=== PATIENT | female | born 1965 | race African-American/Black ===

== ENCOUNTER 2022-06-03 11:45 | Emergency (ER) | payer OTHER ==
[~2022-06-03] VITALS: Ht 175.3 cm; Wt 82.7 kg
[~2022-06-03 11:45] MED LIST: NOCURR
[2022-06-03 11:47] VITALS: BP 131/97
[2022-06-03] MEDS ORDERED: LISI-892 PO (11:55)
[2022-06-03] MEDS ORDERED: PERTUSS(ACELL),DIPH,TET VAC/PF 0.5 ML SYRINGE IM. ONE (12:15)
[2022-06-03] MEDS ORDERED: BACITRACIN 28 GM OINTMENT TP ONE (12:15)
[2022-06-03] MEDS ORDERED: AMOX TR/POT CLAV 875 MG/125 MG TABLET PO ONE (12:15)
[2022-06-03] MEDS ORDERED: AMOX1TAB16 PO (12:16)
[2022-06-03] MEDS ORDERED: ACET-3385 PO (13:24)
[2022-06-03] MEDS ORDERED: ACETAMINOPHEN 500 MG TABLET PO ONE (13:30)
== END 2022-06-03 13:43 | disposition home or self-care (01) ==
LOC: EMS 11:45
DX: S61.552A Open bite of left wrist, initial encounter (principal); S21.052A Open bite of left breast, initial encounter; F10.20 Alcohol dependence, uncomplicated; F12.90 Cannabis use, unspecified, uncomplicated; F17.210 Nicotine dependence, cigarettes, uncomplicated; I10 Essential (primary) hypertension; Y04.1XXA Assault by human bite, initial encounter; Y93.89 Activity, other specified; Y92.89 Other specified places as the place of occurrence of the external cause; Y99.8 Other external cause status
CPT/HCPCS: 90471; 90715; 99284